=== PATIENT | male | born 2005 | race Caucasian/White ===

== ENCOUNTER 2025-01-22 20:48 | Emergency (ER) | payer SELFPAY ==
[2025-01-22 20:55] VITALS: BP 139/82; BMI 47.6
--- NOTE | 2025-01-23 00:14 | ED.GENMED ---
History of Present Illness
General
Chief Complaint: Cardiac Symptoms
Time Seen by Provider: 01/22/25 21:56
History of Present Illness
History of Present Illness:
19-year-old male with history of multiple psychiatric diagnoses presenting for palpitations. Patient notes palpitations for the past 3 weeks. He denies any present palpitations. Denies chest pain. He denies any difficulty breathing. Denies any
known history of cardiac issues or history of blood clots. He notes that he is currently in a facility, which sounds like a retirement. He reports that he does not feel safe there. He is requesting that he go to another facility. He is
requesting to talk to his parents and potentially go home. He denies any suicidal or homicidal ideations. He denies fever or systemic symptoms. He denies additional acute medical complaints
Phy Exam
Physical Exam
Physical Exam:
General: Well-appearing, no clinical signs of dehydration, nontoxic and in no acute distress
HEENT: protecting airway
Neck: appears supple
CV: Normal heart rate, regular rhythm
Resp: No accessory muscle use, no increased work of breathing, lungs clear to auscultation bilaterally
Abd: no distension
Extremities: No deformities, no swelling
Neuro: alert, no focal neurologic deficit
: deferred
Rectal: deferred
Psych: Normal affect
Skin: Intact
Course
Orders/Labs/Results
Orders:
Orders
01/22/25 20:52
ECG [Electrocardiogram (*1)] Urgent
Reason for Study: Palpitations
EKG- Treatment ONCE
01/22/25 22:56
Crisis Consult Urgent
Reason for Consult: feels unsafe in his facility
Vital Signs
Initial and Last Documented VS:
Initial Vital Signs
Temp Pulse Resp BP Pulse Ox
98.4 F 115 18 139/82 99
01/22/25 20:55 01/22/25 20:55 01/22/25 20:55 01/22/25 20:55 01/22/25 20:55
Last Documented Vital Signs
Temp Pulse Resp BP Pulse Ox
98.4 F 115 18 139/82 99
01/22/25 20:55 01/22/25 20:55 01/22/25 20:55 01/22/25 20:55 01/22/25 20:55
MDM/Problems Addressed
MDM/Problems Addressed:
19-year-old male with multiple psychiatric diagnoses presenting to the emergency department for palpitations. Vital signs on arrival significant for mild tachycardia.
On exam patient is resting comfortably, no acute distress or discomfort. EKG obtained on arrival, sinus rhythm without acute evidence of ischemia, no arrhythmia. Without present concern for acute cardiac pathology. Do suspect component of
anxiety. Patient is also requesting to go to a new facility. He denies any suicidal or homicidal ideations, does not appear to be a threat to himself or others. He is requesting to go to a psych facility, however does not appear to acutely
qualify. No present psychosis or concern for decompensated psychiatric disease. Will consult with crisis.
00:30 - Crisis to bedside, will provide resources for other facilities. Patient also called his parents and they note that they can pick him up tomorrow if he would like to leave his facility. At this time feel stable for discharge. Return
precautions discussed and patient verbalized understanding
*EKG
Interpreted by ED Provider?: Yes
EKG Intrepretation Date: 01/23/25
EKG Intrepretation Time: 00:21
Interpretation: normal
Heart Rate: 102
Rate: normal
Rhythm: sinus
[place]: normal axis
Interval: normal interval
QRS Pattern: normal QRS
Ischemia: no ischemia
*Critical Care Note
Total Time (30-74mins, 75-104mins- exclusive of procedures): Not Applicable
ED Attending Note
-
Portions of this chart may have been created with voice recognition software.� Occasional wrong word or��sound alike� substitutions may have occurred due to the inherent limitations of voice recognition software.
Discharge Plan
Departure
Referrals:
NONE,* [Family Provider] -
Interventions
Interventions:
*Risk Screen - Suicide Last Done: 01/22/25 20:55
*General Assessment Last Done: 01/22/25 20:55
*Neglect/Abuse Screening Last Done: 01/22/25 20:55
*ED COVID-19 Vaccine History Last Done: 01/22/25 20:55
ED- Pulmonary Assessment Last Done: 01/22/25 21:08
ED- Cardiac Assessment Last Done: 01/22/25 21:08
Discharge Date and Time
Print Language: DIVEHI
[2025-01-23 00:42] VITALS: BP 131/89
== END 2025-01-23 00:55 | disposition home or self-care (01) ==
LOC: EMR 20:48
PROVIDERS: EMERGENCY PHYSICIAN Student in an Organized Health Care Education/Training Program
DX: R00.2 Palpitations (principal)
CPT/HCPCS: 99283; 93005